=== PATIENT | female | born 1965 | race Caucasian/White ===

== ENCOUNTER 2017-09-25 20:36 | Emergency (ER) | payer SELFPAY ==
[~2017-09-25] VITALS: Ht 170.2 cm; Wt 49.0 kg
[~2017-09-25 20:36] MED LIST: BACT800T5 PO; CLAR10TA7 PO; DILA8TAB4 PO; HYDR10SO PO; NAPR220T95 PO
[2017-09-25 21:05] VITALS: BP 124/58; PULSE 92; RESP 18
[2017-09-26] MEDS ORDERED: ASPI81TA81 PO (00:39)
[2017-09-26] MEDS ORDERED: subutex PO (00:39)
[2017-09-26 01:21] VITALS: TEMP 98.9; O2SAT 97
--- NOTE | 2017-09-26 01:25 | PD ---
HPI Chief Complaint: Abdominal Pain Time Seen by Provider: 00:50 Travel History International Travel<30 days: No Contact w/Intl Traveler<30days: No Traveled to known affect area: No History of Present Illness HPI 52yo F with PMH of ex IVDA, Hep C, rheumatoid arthritis presents to the ED with multiple complaints today. Pt is mainly here because she said she has a lymph node in left groin for years and thinks that the pain is radiating to her left buttocks and making her sciatica worst because now she has worsening shooting pain in left leg. Pt also said she has left leg swelling that is new. Said she feels like there is something under her right rib area making her short of breath and with chest pain. Denies any fever, vomiting, new focal weakness or numbness. 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) Psychiatric: No Respiratory: No Immunizations Current: No Migraines: Yes Seizures: No Thyroid Disease: No Tetanus Vaccination: Unknown Influenza Vaccination: No PNEUMOCCOCAL Vaccine (Year): 2 ?: Not LMP: menapause : 5 Para: 3 Miscarriage: 1 : 1 Ectopic : No Ovarian Cysts: No Dilation and Curettage (D&C): No Tubal Ligation: No Past Surgical History Body Medical Devices: BREASTS Section: No Hysterectomy: No Other Surgery: Yes (Breast Implants 1989) Social History Alcohol Use: No Tobacco Use: No Substance Use: No Allergies-Medications (Allergen,Severity, Reaction): Coded Allergies: cyclobenzaprine (Unverified Allergy, Severe, SIEZURE, 09/26/17) meperidine (Unverified Allergy, Severe, CARDIAC ARREST, 09/26/17) Reported Meds & Prescriptions Reported Meds & Active Scripts Active Reported [subutex] 8 Mg PO DAILY Aspir-81 (Aspirin) 81 Mg Tabdr 81 Mg PO DAILY Review of Systems Except as stated in HPI: all other systems reviewed are Neg Physical Exam Narrative GENERAL: 52yo F not in distress. SKIN: Focused skin assessment warm/dry. HEAD: Atraumatic. Normocephalic. EYES: Pupils equal and round. No scleral icterus. No injection or drainage. ENT: No nasal bleeding or discharge. Mucous membranes pink and moist. NECK: Trachea midline. No JVD. CARDIOVASCULAR: Regular rate and rhythm. No murmur appreciated. RESPIRATORY: No accessory muscle use. Clear to auscultation. Breath sounds equal bilaterally. GASTROINTESTINAL: Abdomen soft, non-tender, nondistended. No rebound tenderness or guarding. +Edema in left groin that is not edematous. It is soft, likely enlarged lymph node. MUSCULOSKELETAL: No obvious deformities. No clubbing. No cyanosis. LLE: + Edema from dorsum of left foot to tib/fib. No erythema. Distal pulses intact. NEUROLOGICAL: Awake and alert. No obvious cranial nerve deficits. Motor grossly within normal limits. Normal speech. PSYCHIATRIC: Appropriate mood and affect; insight and judgment normal. Data Data Last Documented VS Vital Signs Date Time Temp Pulse Resp B/P (MAP) Pulse Ox O2 Delivery O2 Flow Rate FiO2 09/26/17 04:20 78 16 91/56 (68) 98 Room Air 09/26/17 01:21 98.9 Orders Orders Electrocardiogram (09/26/17 ) Complete Blood Count With Diff (09/26/17 01:02) Basic Metabolic Panel (Bmp) (09/26/17 01:02) Troponin I (09/26/17 01:02) Chest, Single Ap (09/26/17 ) Ct Abd/Pel W Iv Contrast(Rout) (09/26/17 ) Us Leg Venous Doppler (09/26/17 ) Iohexol 350 Inj (Omnipaque 350 Inj) (09/26/17 02:45) Fleets Enema (Adult) (Fleets Enema (Adul (09/26/17 03:45) Acetaminophen (Tylenol) (09/26/17 03:45) Diazepam (Valium) (09/26/17 04:15) Labs Laboratory Tests Test 09/26/17 02:17 White Blood Count 9.9 TH/MM3 Red Blood Count 3.93 MIL/MM3 Hemoglobin 10.9 GM/DL Hematocrit 33.0 % Mean Corpuscular Volume 84.1 FL Mean Corpuscular Hemoglobin 27.9 PG Mean Corpuscular Hemoglobin Concent 33.1 % Red Cell Distribution Width 14.7 % Platelet Count 403 TH/MM3 Mean Platelet Volume 7.1 FL Neutrophils (%) (Auto) 71.2 % Lymphocytes (%) (Auto) 19.5 % Monocytes (%) (Auto) 8.3 % Eosinophils (%) (Auto) 0.5 % Basophils (%) (Auto) 0.5 % Neutrophils # (Auto) 7.0 TH/MM3 Lymphocytes # (Auto) 1.9 TH/MM3 Monocytes # (Auto) 0.8 TH/MM3 Eosinophils # (Auto) 0.1 TH/MM3 Basophils # (Auto) 0.1 TH/MM3 CBC Comment DIFF FINAL Differential Comment Blood Urea Nitrogen 15 MG/DL Creatinine 0.83 MG/DL Random Glucose 129 MG/DL Calcium Level 9.0 MG/DL Sodium Level 133 MEQ/L Potassium Level 4.1 MEQ/L Chloride Level 97 MEQ/L Carbon Dioxide Level 27.1 MEQ/L Anion Gap 9 MEQ/L Estimat Glomerular Filtration Rate 72 ML/MIN Troponin I LESS THAN 0.02 NG/ML MDM Medical Decision Making Medical Screen Exam Complete: Yes Emergency Medical Condition: Yes Interpretation(s) EKG: NSR 77bpm. Normal axis. TWI V2. No significant ST elevation or depression. Differential Diagnosis Lymphadenitis vs. abscess vs. sciatica vs. anxiety Narrative Course 52yo F with multiple complaints. Labs reviewed, no leukocytosis. H/H low at 10.9/33.0 but she has had this before. Troponin negative. Mild hyponatremia and hypochloremia. CT a/p showed moderate to large amount of stool throughout colon most characteristic of constipation. Extensive venous enhancement in pelvis greatest in left adnexal region which could represent multiple varices. Instructed pt to follow up with [facility]. Reactive appearing lymph nodes in left inguinal region. CXR negative. US left leg showed no DVT. Mildly prominent lymph node in left groin. Pt refused fleet enema, said she has bowel movement every day but just small amounts and last had it yesterday. Pt given acetaminophen for pain. Return precautions given. Copy of CT scan result given to pt to follow up. Diagnosis Primary Impression: Reactive lymphadenopathy Additional Impression: Constipation Qualified Codes: K59.00 - Constipation, unspecified Patient Instructions: General Instructions Departure Forms: Tests/Procedures Additional Instructions: Please follow up with your primary care physician in 2-3 days. Return to the ED if symptoms worsen. Med/Other Pt SpecificInfo: Prescription(s) given Scripts Acetaminophen (Tylenol) 325 Mg Tab 650 MG PO Q6H Y for PAIN SCALE 1 TO 4, #20 TAB 0 Refills Prov: Kayla Mohr DO 09/26/17 Disposition: 01 DISCHARGE HOME Condition: Stable Kayla Mohr DO September 26, 2017 01:25
--- NOTE | 2017-09-26 01:41 | RADRPT ---
EXAM DATE: 09/26/2017 1:36 AM EDT AGE/SEX: 52 years / Female INDICATIONS: Left leg swelling and pain. CLINICAL DATA: This is the patient's initial encounter. Patient reports that signs and symptoms have been present for 2 weeks and indicates a pain score of 6/10. MEDICAL/SURGICAL HISTORY: . Frontal lobe aneurysm. Migraines. . Arthritis. Ges tational diabetes. Measles. Back problems. . Breast implants. Foot wound repair. COMPARISON: No prior [facility] exams available for comparison. TECHNIQUE: Venous ultrasound of both lower extremities was performed from the inguinal ligament to t he proximal calf. Real-time, color Doppler and spectral tracing, compression and augmentation techni ques were used. FINDINGS: There is normal compressibility of the deep venous system from the inguinal region to the proximal ca lf. No echogenic clot is seen in the lumen of the common femoral, femoral, popliteal, and posterior tibial veins. There is a normal response of the venous system to proximal and distal augmentation an d respiration. A prominent lymph node is noted in the left groin region measuring up to 3.1 x 1.3 x 0.6 cm. CONCLUSION: 1. No evidence of deep venous thrombosis. 2. Mildly prominent lymph node in the left groin. Electronically signed by: Porter Aguilar MD 09/26/2017 1:40 AM EDT
--- NOTE | 2017-09-26 01:42 | RADRPT ---
EXAM DATE: 09/26/2017 1:39 AM EDT AGE/SEX: 52 years / Female INDICATIONS: Short of breath. CLINICAL DATA: This is the patient's initial encounter. Patient reports that signs and symptoms have been present for 1 day and indicates a pain score of 0/10. MEDICAL/SURGICAL HISTORY: None. None. COMPARISON: No prior [facility] exams available for comparison. FINDINGS: A single AP portable semierect view of the chest demonstrates the lungs to be symmetrically aerated w ithout evidence of mass, infiltrate or effusion. The cardiomediastinal contours are unremarkable. O sseous structures are intact. CONCLUSION: No acute cardiopulmonary disease. Electronically signed by: Porter Aguilar MD 09/26/2017 1:41 AM EDT
[2017-09-26 02:40] LABS: BASOPHIL # 0.1 TH/MM3 (0-0.2); BASOPHIL % 0.5 % (0.0-2.0); EOSINOPHIL # 0.1 TH/MM3 (0-0.4); EOSINOPHIL % 0.5 % (0.0-4.0); HEMOGLOBIN 10.9 GM/DL (11.6-15.3); LYMPH % 19.5 % (9.0-44.0); LYMPHOCYTE # 1.9 TH/MM3 (1.0-4.8); MEAN CELL VOLUME 84.1 FL (80.0-100.0); MEAN CORPUSCULAR HEMOGLOBIN 27.9 PG (27.0-34.0); MEAN CORPUSCULAR HGB CONC 33.1 % (32.0-36.0); MEAN PLATELET VOLUME 7.1 FL (7.0-11.0); MONO % 8.3 % (0.0-8.0); MONOCYTE # 0.8 TH/MM3 (0-0.9); NEUT % 71.2 % (16.0-70.0); PLATELET COUNT 403 TH/MM3 (150-450); RED BLOOD COUNT 3.93 MIL/MM3 (4.00-5.30); RED CELL DISTRIBUTION WIDTH 14.7 % (11.6-17.2); WHITE BLOOD COUNT 9.9 TH/MM3 (4.0-11.0)
[2017-09-26] MEDS ORDERED: IOHEXOL 350 MG/ML 10 ML VIAL (for RAD DIAG) IVCONTRAST ONE (02:45)
[2017-09-26 02:59] LABS: TROPONIN I LESS THAN 0.02 NG/ML (0.02-0.05)
[2017-09-26 03:01] LABS: BICARBONATE 27.1 MEQ/L (21.0-32.0); BLOOD UREA NITROGEN 15 MG/DL (7-18); CHLORIDE 97 MEQ/L (98-107); CREATININE 0.83 MG/DL (0.50-1.00); GLOMERULAR FILTRATION RATE 72 ML/MIN (>89); GLUCOSE,RANDOM 129 MG/DL (74-106); SODIUM (NA) 133 MEQ/L (136-145)
--- NOTE | 2017-09-26 03:02 | RADRPT ---
EXAM DATE: 09/26/2017 2:54 AM EDT AGE/SEX: 52 years / Female INDICATIONS: Left groin pain. Swelling down left leg. CLINICAL DATA: This is the patient's initial encounter. Patient reports that signs and symptoms have been present for 1 week and indicates a pain score of 6/10. MEDICAL/SURGICAL HISTORY: None. None. ORAL CONTRAST: No oral contrast ingested. RADIATION DOSE: 6.64 CTDI (mGy) COMPARISON: No prior [facility] exams available for comparison. TECHNIQUE: Multiple contiguous axial images were obtained through the abdomen and pelvis following b olus infusion of 75 ml Omnipaque 350 (iohexol) nonionic water-soluble contrast as a single exam dos e. No oral contrast ingested. Using automated exposure control and adjustment of the mA and/or kV ac cording to patient size, the radiation dose was kept as low as reasonably achievable to obtain optima l diagnostic quality images. FINDINGS: Lower Lungs: The visualized lower lungs are clear. Liver: The liver has a homogeneous density without space-occupying lesion. There is no dilation of th e biliary tree. Spleen: Homogeneous density without enlargement. Pancreas: Unremarkable without mass or calcification. Kidneys: Normal in size and shape. No evidence of mass or hydronephrosis. Adrenal Glands: Unremarkable. Aorta: The aorta and proximal iliac vessels are grossly unremarkable without aneurysmal dilation. Bowel/Mesentery: No oral contrast was given limiting the sensitivity. There is a moderate to large am ount of stool throughout the colon. There is poor visualization and delineation delineation of the chacha wel loops due to minimal mesenteric fat and lack of oral contrast. The cecum and sigmoid colon have a grossly normal configuration. Abdominal Wall: Intact. Retroperitoneum: No evidence of adenopathy in the retrocrural, para-aortic, or deep pelvic regions. Bladder: Contours are smooth. Reproductive Organs: No abnormal masses or calcifications seen. Prominent venous enhancement is note d in the pelvis especially in the left adnexal region. Inguinal: The inguinal region is unremarkable without evidence of adenopathy. There are reactive renetta earing lymph nodes in the left inguinal region. Bony Structures: Unremarkable. CONCLUSION: 1. Moderate to large amount of stool throughout the colon most characteristic of constipation. 2. Extensive venous enhancement in the pelvis greatest in the left adnexal region which could repres ent multiple varices. 3. Reactive appearing lymph nodes in the left inguinal region. Electronically signed by: Porter Aguilar MD 09/26/2017 3:00 AM EDT
[2017-09-26] MEDS ORDERED: ACETAMINOPHEN 325 MG TAB PO ONE (03:45)
[2017-09-26] MEDS ORDERED: SOD PHOSPHATE/SOD BIPHOSPHATE (ADULT) ENEMA 133ML RECTAL ONE (03:45)
[2017-09-26] MEDS ORDERED: DIAZEPAM 5 MG TAB PO ONE (04:15)
[2017-09-26 04:20] VITALS: BP 91/56; PULSE 78; RESP 16; O2SAT 98
[2017-09-26] MEDS ORDERED: TYLE325T PO (04:31)
--- NOTE | 2017-09-26 14:39 | EKG ---
Date Performed: 09/26/2017 Time Performed: 02:32:01 PTAGE: 52 years EKG: Sinus rhythm WITH SHORT WA INTERVAL POSSIBLE RIGHT VENTRICULAR CONDUCTION DELAY MINIMAL VOLTAGE CRITERIA FOR LVH, CONSIDER NORMAL VARIANT BORDERLINE ECG Compared to prior electrocardiogram, Possible right ventricul ar conduction delay is now present. PREVIOUS TRACING : 06/26/2013 17.51 DOCTOR: Gonzalez Holden Interpretating Date/Time 09/26/2017 14:38:32
== END 2017-09-26 05:46 | disposition home or self-care (01) ==
LOC: NEPC 20:36
DX: R59.1 Generalized enlarged lymph nodes (principal); K59.00 Constipation, unspecified
CPT/HCPCS: 71045; 74177; 80048; 84484; 85025; 93005; 93971; 99285; Q9967